=== PATIENT | female | born 1995 | race Caucasian/White ===

== ENCOUNTER 2016-10-08 22:32 | Inpatient (IN) | payer OTHER ==
[~2016-10-08] VITALS: Ht 170.2 cm; Wt 94.7 kg
[~2016-10-08 22:32] MED LIST: ALBUTEROL SULF8.5 GM IH; BENTYL20 MG PO; CEFTIN500 MG PO; ENDOCET 5-3251 EACH PO; FLUTICASONE PRO16 GM BOTH NARES; IBUPROFEN800 MG; KEFLEX500 MG PO; MACROBID100 MG PO; NAPROXEN500 MG PO; NITROFURANTOIN; NITROFURANTOIN100 M3; NOHOMEMEDS; NORCO 5/3251 TABLET PO; OXECTA5 MG PO; PERCOCET 5/31 TABLET PO; PROAIR HFA8.5 GM IH; PYRIDIUM200 MG PO; Phenergan PO; RISPERDAL1 MG PO; RISPERIDONE0.5 MG; ROBITUSSIN AC,T10 ML PO; SUPRAX400 MG PO; VICODIN,LORT1 TABLET PO; WELLBUTRIN75 MG PO; ZOFRAN ODT4 MG PO; ZOFRAN ODT8 MG PO; ZOFRAN4 MG PO
[2016-10-08 23:15] LABS: HEMATOCRIT 39.4 % (36.0-46.0); MCHC 35.3 G/DL (30.0-36.0); MCV 87.8 FL (83-99); PLATELET COUNT 146 K/uL (156-360); RBC DIS.WIDTH-SD 38.6 % (39-53); RED BLOOD COUNT 4.49 M/uL (3.80-5.20); WHITE BLOOD COUNT 19.1 K/uL (4.1-10.2)
[2016-10-08 23:18] LABS: CREATININE 1.4 mg/dL (0.6-1.3); POTASSIUM 3.2 mEq/L (3.7-5.4)
[2016-10-08 23:24] LABS: CHLORIDE 102 mEq/L (99-109); POTASSIUM 3.3 mEq/L (3.7-5.4); SODIUM 134 mEq/L (136-147)
[2016-10-08 23:25] LABS: GLUCOSE 119 mg/dL (70-99)
[2016-10-08 23:27] LABS: ANION GAP 12 MEQ/L (2-14)
[2016-10-08 23:29] LABS: GFR ESTIMATE (CALCULATED) 50 mL/min/
[2016-10-08 23:30] LABS: UREA NITROGEN (BUN) 9 mg/dL (9-23)
[2016-10-08] MEDS ORDERED: CELEXA10 MG PO (23:55)
[2016-10-08] MEDS ORDERED: ABILIFY5 MG PO (23:56)
[2016-10-08] MEDS ORDERED: CELEXA20 MG PO (23:56)
[2016-10-08] MEDS ORDERED: MICROGESTIN1 EACH PO (23:57)
[2016-10-08] MEDS ORDERED: VITAMIN D32000 UNI1 PO (23:58)
[2016-10-08] MEDS ORDERED: METFORMIN HCL500 MG PO (23:58)
[2016-10-08] MEDS ORDERED: PROAIR HFA8.5 GM IH (23:59)
[2016-10-08] MEDS ORDERED: ATARAX10 MG PO (23:59)
[2016-10-08] MEDS ORDERED: CLONAZEPAM0.5 MG PO (23:59)
[2016-10-09 01:57] VITALS: BP 142/79
[2016-10-09 08:27] VITALS: BP 126/73
[2016-10-09 09:05] LABS: HEMATOCRIT 38.7 % (36.0-46.0); MCH 31.2 PG (29.0-34.0); MCHC 34.6 G/DL (30.0-36.0); MCV 90.2 FL (83-99); MEAN PLAT.VOLUME 11.9 uM^3 (9.5-12.4); PLATELET COUNT 125 K/uL (156-360); RBC DIS.WIDTH-CV 12.4 % (11.8-14.6); RED BLOOD COUNT 4.29 M/uL (3.80-5.20); WHITE BLOOD COUNT 15.1 K/uL (4.1-10.2)
[2016-10-09 09:34] LABS: ALKALINE PHOSPHATASE 66 IU/L (3-129); ANION GAP 11 MEQ/L (2-14); CHLORIDE 104 MEQ/L (99-109); GFR ESTIMATE (CALCULATED) > 59 mL/min/; GLUCOSE 100 mg/dL (70-99); POTASSIUM 3.9 MEQ/L (3.7-5.4); SAMPLE HEMOLYSIS CHECK 0; SAMPLE ICTERIC CHECK 0; SAMPLE LIPEMIA CHECK 0; SODIUM 135 MEQ/L (136-147); TOTAL BILIRUBIN 0.7 MG/DL (0.0-1.0); UREA NITROGEN (BUN) 12 mg/dL (9-23)
[2016-10-09 11:02] VITALS: BP 105/57
[2016-10-09 15:04] VITALS: BP 123/66
[2016-10-09 19:24] LABS: ADD MIUA? YES; BILIRUBIN NEGATIVE; BLOOD SMALL; COLOR YELLOW ((YELLOW)); GLUCOSE (STRIP) NEGATIVE; KETONES NEGATIVE; LEUKOCYTES NEGATIVE; NITRITE NEGATIVE; PROTEIN (STRIP) NEGATIVE; SPECIFIC GRAVITY 1.004 (1.000-1.030); UROBILINOGEN 0.2 MG/DL (0.2-1.0)
[2016-10-09 19:29] LABS: BACTERIA NONE SEEN /HPF; EPITHELIAL CELLS 1+ /HPF; MUCUS NONE SEEN /LPF; RED BLOOD CELLS 0-5 /HPF (0-5); UCUL ADDED? NO; WHITE BLOOD CELLS 0-5 /HPF (0-5)
[2016-10-09 19:36] VITALS: BP 100/57
[2016-10-09 23:46] VITALS: BP 153/69
[2016-10-10 03:21] VITALS: BP 109/58
[2016-10-10 08:24] VITALS: BP 116/63
[2016-10-10 16:39] VITALS: BP 124/76
[2016-10-10 19:44] VITALS: BP 123/59
[2016-10-11 00:01] VITALS: BP 119/77
[2016-10-11 04:02] VITALS: BP 126/72
[2016-10-11 08:11] VITALS: BP 133/81
[2016-10-11 08:49] LABS: EOSINOPHIL (%) 0.4 % (0-5); HEMATOCRIT 34.8 % (36.0-46.0); IMMATURE GRANULOCYTE (%) 0.4 % (0.0-0.7); INSTRUMENT ABS NEUTROPHIL CT 4.5 K/uL; LYMPHOCYTE COUNT 1.9 K/uL (1.0-2.8); MCH 30.3 PG (29.0-34.0); MCHC 33.9 G/DL (30.0-36.0); MCV 89.2 FL (83-99); MEAN PLAT.VOLUME 11.7 uM^3 (9.5-12.4); MONOCYTE (%) 11.3 % (3-12); MONOCYTE COUNT 0.8 K/uL (0-0.8); NEUTROPHIL (%) 61.9 % (45-76); NEUTROPHIL COUNT 4.5 K/uL (1.8-6.4); PLATELET COUNT 141 K/uL (156-360); RBC DIS.WIDTH-CV 12.7 % (11.8-14.6); RBC DIS.WIDTH-SD 41.8 % (39-53); WHITE BLOOD COUNT 7.3 K/uL (4.1-10.2)
[2016-10-11 12:44] VITALS: BP 129/79
[2016-10-11 14:59] VITALS: BP 137/78
[2016-10-11 19:26] VITALS: BP 133/71
[2016-10-12] VITALS: BP 164/91
[2016-10-12 03:28] VITALS: BP 141/90
[2016-10-12 09:00] VITALS: BP 127/83
[2016-10-12 09:55] VITALS: BP 127/83
[2016-10-12] MEDS ORDERED: KEFLEX500 MG PO (11:02)
[2016-10-12] MEDS ORDERED: ZOFRAN ODT4 MG PO (11:05)
== END 2016-10-12 12:45 | disposition home or self-care (01) | DRG 690 ==
LOC: EME 22:32 → 5SOUTH 10-09 00:51 → EDOF 10-09 00:51 → ENRESERV 10-09 00:59 → 5SOUTH 10-09 01:39
PROVIDERS: Emergency Medicine; Internal Medicine
DX: N39.0 Urinary tract infection, site not specified (principal); F31.9 Bipolar disorder, unspecified; E28.2 Polycystic ovarian syndrome; N13.70 Vesicoureteral-reflux, unspecified; K59.00 Constipation, unspecified; F41.9 Anxiety disorder, unspecified; F17.210 Nicotine dependence, cigarettes, uncomplicated; Z68.32 Body mass index [BMI] 32.0-32.9, adult; E66.9 Obesity, unspecified; E87.6 Hypokalemia; K21.9 Gastro-esophageal reflux disease without esophagitis; B96.20 Unspecified Escherichia coli [E. coli] as the cause of diseases classified elsewhere; Z16.29 Resistance to other single specified antibiotic; Z16.11 Resistance to penicillins; Z87.440 Personal history of urinary (tract) infections; Z79.899 Other long term (current) drug therapy; Z79.84 Long term (current) use of oral hypoglycemic drugs
CPT/HCPCS: 76770; 80047; 80048; 80053; 81003; 83605; 85025; 85027; 87040; 87077; 87086; 87186; 87801; 99281; 99285; J0692; J0696; J1644; J1885; J2270; J2405; J7030; J7050

== ENCOUNTER 2016-12-15 21:55 | Inpatient (IN) | payer OTHER ==
[~2016-12-15] VITALS: Ht 170.2 cm; Wt 96.1 kg
[~2016-12-15 21:55] MED LIST changes: +ABILIFY10 MG PO; +ATARAX10 MG PO; +CELEXA10 MG PO; +CELEXA20 MG PO; +CLONAZEPAM0.5 MG PO; +METFORMIN HCL500 MG PO; +MICROGESTIN1 EACH PO; +VITAMIN D32000 UNI1 PO
[2016-12-15 22:43] LABS: HEMATOCRIT 41.6 % (36.0-46.0); MCH 30.7 PG (29.0-34.0); MCHC 34.1 G/DL (30.0-36.0); MCV 89.8 FL (83-99); MEAN PLAT.VOLUME 10.5 uM^3 (9.5-12.4); PLATELET COUNT 247 K/uL (156-360); RBC DIS.WIDTH-CV 13.1 % (11.8-14.6); RBC DIS.WIDTH-SD 43.2 % (39-53); RED BLOOD COUNT 4.63 M/uL (3.80-5.20); WHITE BLOOD COUNT 20.2 K/uL (4.1-10.2)
[2016-12-15 22:53] LABS: CHLORIDE 104 mEq/L (99-109); POTASSIUM 4.1 mEq/L (3.7-5.4); SODIUM 137 mEq/L (136-147)
[2016-12-15 22:55] LABS: GLUCOSE 101 mg/dL (70-99)
[2016-12-15 22:56] LABS: ANION GAP 9 MEQ/L (2-14)
[2016-12-15 22:59] LABS: GFR ESTIMATE (CALCULATED) > 59 mL/min/
[2016-12-15 23:00] LABS: UREA NITROGEN (BUN) 11 mg/dL (9-23)
[2016-12-15 23:10] LABS: QUANTITATIVE HCG < 4.0 MIU/ML
[2016-12-16 01:21] LABS: ADD MIUA? YES; BILIRUBIN NEGATIVE; BLOOD MODERATE; COLOR YELLOW ((YELLOW)); GLUCOSE (STRIP) NEGATIVE; KETONES 20; LEUKOCYTES LARGE; NITRITE POSITIVE; PROTEIN (STRIP) 30; SPECIFIC GRAVITY 1.013 (1.000-1.030)
[2016-12-16 01:55] LABS: BACTERIA NONE SEEN /HPF; EPITHELIAL CELLS 2+ /HPF; MUCUS TRACE /LPF; RED BLOOD CELLS 40-50 /HPF (0-5); UCUL ADDED? YES; WHITE BLOOD CELLS TNTC /HPF (0-5); WHITE BLOOD CELLS CLUMP MANY /HPF (0-5)
[2016-12-16 06:32] LABS: METH RESISTANT S AUREUS PCR NEGATIVE (NEGATIVE)
[2016-12-16 06:35] LABS: PROBE CHECK PASS; SPECIMEN PROCESSING CONTROL PASS
[2016-12-16 08:37] VITALS: BP 121/56
[2016-12-16 11:06] VITALS: BP 110/58
[2016-12-16 11:30] VITALS: BP 116/58
[2016-12-16 15:16] VITALS: BP 133/69
[2016-12-16 18:59] VITALS: BP 114/58
[2016-12-16 23:49] VITALS: BP 118/67
[2016-12-17 03:51] VITALS: BP 113/63
[2016-12-17 05:52] LABS: EOSINOPHIL (%) 0.3 % (0-5); HEMATOCRIT 37.6 % (36.0-46.0); IMMATURE GRANULOCYTE (%) 0.3 % (0.0-0.7); INSTRUMENT ABS NEUTROPHIL CT 9.1 K/uL; LYMPHOCYTE COUNT 2.1 K/uL (1.0-2.8); MCH 31.8 PG (29.0-34.0); MCHC 34.6 G/DL (30.0-36.0); MCV 91.9 FL (83-99); MEAN PLAT.VOLUME 10.6 uM^3 (9.5-12.4); MONOCYTE (%) 8.2 % (3-12); NEUTROPHIL (%) 73.8 % (45-76); NEUTROPHIL COUNT 9.1 K/uL (1.8-6.4); PLATELET COUNT 186 K/uL (156-360); RBC DIS.WIDTH-CV 13.2 % (11.8-14.6); RBC DIS.WIDTH-SD 44.7 % (39-53); RED BLOOD COUNT 4.09 M/uL (3.80-5.20); WHITE BLOOD COUNT 12.3 K/uL (4.1-10.2)
[2016-12-17 06:12] LABS: ANION GAP 9 MEQ/L (2-14); CHLORIDE 103 MEQ/L (99-109); GFR ESTIMATE (CALCULATED) > 59 mL/min/; GLUCOSE 93 mg/dL (70-99); POTASSIUM 3.7 MEQ/L (3.7-5.4); SAMPLE HEMOLYSIS CHECK 0; SAMPLE ICTERIC CHECK 0; SAMPLE LIPEMIA CHECK 0; SODIUM 136 MEQ/L (136-147); UREA NITROGEN (BUN) 6 mg/dL (9-23)
[2016-12-17 07:40] VITALS: BP 120/68
[2016-12-17 11:30] VITALS: BP 106/55
[2016-12-17 15:45] VITALS: BP 118/67
[2016-12-17 19:59] VITALS: BP 111/63
[2016-12-18 00:44] VITALS: BP 110/59
[2016-12-18 07:15] VITALS: BP 125/68
[2016-12-18 07:15] LABS: EOSINOPHIL (%) 2.1 % (0-5); EOSINOPHIL COUNT 0.2 K/uL (0-0.3); HEMATOCRIT 35.7 % (36.0-46.0); IMMATURE GRANULOCYTE (%) 0.3 % (0.0-0.7); INSTRUMENT ABS NEUTROPHIL CT 4.7 K/uL; LYMPHOCYTE COUNT 2.1 K/uL (1.0-2.8); MCH 30.7 PG (29.0-34.0); MCHC 33.3 G/DL (30.0-36.0); MEAN PLAT.VOLUME 10.9 uM^3 (9.5-12.4); MONOCYTE (%) 10.4 % (3-12); MONOCYTE COUNT 0.8 K/uL (0-0.8); NEUTROPHIL (%) 60.7 % (45-76); NEUTROPHIL COUNT 4.7 K/uL (1.8-6.4); PLATELET COUNT 178 K/uL (156-360); RBC DIS.WIDTH-CV 13.2 % (11.8-14.6); RBC DIS.WIDTH-SD 44.6 % (39-53); RED BLOOD COUNT 3.88 M/uL (3.80-5.20); WHITE BLOOD COUNT 7.8 K/uL (4.1-10.2)
[2016-12-18 07:33] LABS: ALKALINE PHOSPHATASE 60 IU/L (3-129); ANION GAP 9 MEQ/L (2-14); CHLORIDE 106 MEQ/L (99-109); GFR ESTIMATE (CALCULATED) > 59 mL/min/; GLUCOSE 89 mg/dL (70-99); POTASSIUM 3.9 MEQ/L (3.7-5.4); SAMPLE HEMOLYSIS CHECK 0; SAMPLE ICTERIC CHECK 0; SAMPLE LIPEMIA CHECK 0; SODIUM 139 MEQ/L (136-147); TOTAL BILIRUBIN 0.4 MG/DL (0.0-1.0); UREA NITROGEN (BUN) 6 mg/dL (9-23)
[2016-12-18 13:15] VITALS: BP 116/72
[2016-12-18] MEDS ORDERED: ROCEPHIN 2 GM VI2 GM IV (15:15)
[2016-12-18] MEDS ORDERED: ULTRAM50 MG PO (15:57)
== END 2016-12-18 16:03 | disposition home or self-care (01) | DRG 690 ==
LOC: EME 21:55 → EDOF 12-16 03:52 → 2EAST 12-16 03:52 → ENRESERV 12-16 03:54 → 2EAST 12-16 04:45
PROVIDERS: Hospitalist
DX: N10 Acute pyelonephritis (principal); E28.2 Polycystic ovarian syndrome; F17.210 Nicotine dependence, cigarettes, uncomplicated; F12.10 Cannabis abuse, uncomplicated; F31.9 Bipolar disorder, unspecified; Z87.440 Personal history of urinary (tract) infections; K59.00 Constipation, unspecified; Z88.2 Allergy status to sulfonamides; N30.90 Cystitis, unspecified without hematuria; B96.20 Unspecified Escherichia coli [E. coli] as the cause of diseases classified elsewhere; F41.9 Anxiety disorder, unspecified; Z56.0 Unemployment, unspecified; G43.909 Migraine, unspecified, not intractable, without status migrainosus; Z23 Encounter for immunization
CPT/HCPCS: 74176; 80048; 80053; 81003; 83605; 84702; 85025; 85027; 87040; 87077; 87086; 87186; 87641; 90686; 99281; 99285; J0696; J1650; J2270; J2405; J7030; J7050; J7120

== ENCOUNTER 2017-10-20 20:19 | Emergency (ER) | payer OTHER ==
[~2017-10-20] VITALS: Ht 170.2 cm; Wt 101.6 kg
[~2017-10-20 20:19] MED LIST changes: +ROCEPHIN 2 GM VI2 GM IV; +ULTRAM50 MG PO
[2017-10-20 21:00] LABS: BASOPHIL (%) 0.3 % (0-1); EOSINOPHIL (%) 4.6 % (0-5); EOSINOPHIL COUNT 0.5 K/uL (0-0.3); HEMOGLOBIN 14.3 G/DL (11.9-15.5); IMMATURE GRANULOCYTE (%) 0.3 % (0.0-0.7); LYMPHOCYTE COUNT 4.6 K/uL (1.0-2.8); MCH 31.2 PG (29.0-34.0); MCHC 34.9 G/DL (30.0-36.0); MCV 89.5 FL (83-99); MONOCYTE (%) 6.2 % (3-12); MONOCYTE COUNT 0.7 K/uL (0-0.8); NEUTROPHIL (%) 48.6 % (45-76); NEUTROPHIL COUNT 5.6 K/uL (1.8-6.4); PLATELET COUNT 210 K/uL (156-360); RBC DIS.WIDTH-CV 12.5 % (11.8-14.6); RBC DIS.WIDTH-SD 41.2 % (39-53); RED BLOOD COUNT 4.58 M/uL (3.80-5.20); WHITE BLOOD COUNT 11.6 K/uL (4.1-10.2)
[2017-10-20 21:14] LABS: ALBUMIN 4.2 g/dL (3.2-4.8); CHLORIDE 106 mEq/L (99-109); POTASSIUM 3.7 mEq/L (3.7-5.4); SODIUM 137 mEq/L (136-147)
[2017-10-20 21:17] LABS: GLUCOSE 123 mg/dL (70-99); TOTAL PROTEIN 7.6 g/dL (6.4-8.3)
[2017-10-20 21:19] LABS: TOTAL BILIRUBIN 0.3 mg/dL (0.0-1.0)
[2017-10-20 21:20] LABS: ALKALINE PHOSPHATASE 80 IU/L (3-129); CREATININE 0.8 mg/dL (0.6-1.3); GFR ESTIMATE (CALCULATED) > 59 mL/min/
[2017-10-20 21:21] LABS: UREA NITROGEN (BUN) 12 mg/dL (9-23)
[2017-10-20 21:22] LABS: AST (GOT) 20 IU/L (2-34)
[2017-10-20 21:23] LABS: ALT (GPT) 20 IU/L (3-49)
[2017-10-20 21:24] LABS: LIPASE 58 U/L (1.0-51.0)
[2017-10-20 21:31] LABS: QUANTITATIVE HCG < 4.0 MIU/ML
[2017-10-20 21:48] LABS: APPEARANCE SL.HAZY ((CLEAR)); BILIRUBIN NEGATIVE; BLOOD NEGATIVE; COLOR AMBER ((YELLOW)); GLUCOSE (STRIP) NEGATIVE; KETONES NEGATIVE; LEUKOCYTES TRACE; NITRITE NEGATIVE; PROTEIN (STRIP) 30; SPECIFIC GRAVITY 1.026 (1.000-1.030)
[2017-10-20 22:00] LABS: BACTERIA NONE SEEN /HPF; EPITHELIAL CELLS 4+ /HPF; MUCUS TRACE /LPF; RED BLOOD CELLS 0-5 /HPF (0-5); WHITE BLOOD CELLS 0-5 /HPF (0-5)
[2017-10-20 23:06] VITALS: BP 105/57
== END 2017-10-20 23:08 | disposition home or self-care (01) ==
LOC: EME 20:19 → RME 20:19
PROVIDERS: Physician Assistant
DX: K59.00 Constipation, unspecified (principal); R10.9 Unspecified abdominal pain; F31.9 Bipolar disorder, unspecified; F32.9 Major depressive disorder, single episode, unspecified; F41.9 Anxiety disorder, unspecified; F17.200 Nicotine dependence, unspecified, uncomplicated; Z87.440 Personal history of urinary (tract) infections; Z88.2 Allergy status to sulfonamides; Z88.1 Allergy status to other antibiotic agents
CPT/HCPCS: 74176; 80053; 81003; 83605; 83690; 84702; 85025; 87040; 99281; 99285; J1885; J2405; J7030